=== PATIENT | male | born 1955 | race Caucasian/White ===

== ENCOUNTER 2016-10-24 11:14 | Emergency (ER) | payer BC ==
[~2016-10-24] VITALS: Ht 177.8 cm; Wt 98.2 kg
[~2016-10-24 11:14] MED LIST: LEVOFLOXACIN750 MG PO; PREDNISONE20 MG PO; TRAMADOL HCL50 MG PO; VENTOLIN HFA18 GM IH; ZITHROMAX Z-PA250 MG PO
[2016-10-24 11:52] LABS: HEMATOCRIT 46.7 % (38.0-50.0); MCH 30.5 PG (29.0-34.0); MCHC 33.2 G/DL (30.0-36.0); MCV 91.9 FL (86-99); MEAN PLAT.VOLUME 9.3 uM^3 (9.0-12.4); PLATELET COUNT 145 K/uL (156-360); RBC DIS.WIDTH-CV 13.3 % (11.8-14.6); RBC DIS.WIDTH-SD 45.8 % (39-53); RED BLOOD COUNT 5.08 M/uL (4.00-5.50)
[2016-10-24 12:01] LABS: CHLORIDE 103 mEq/L (99-109); POTASSIUM 4.5 mEq/L (3.7-5.4); SODIUM 139 mEq/L (136-147)
[2016-10-24 12:03] LABS: GLUCOSE 92 mg/dL (70-99)
[2016-10-24 12:04] LABS: ANION GAP 11 MEQ/L (2-14)
[2016-10-24 12:05] LABS: TOTAL BILIRUBIN 0.9 mg/dL (0.0-1.0)
[2016-10-24 12:07] LABS: ALKALINE PHOSPHATASE 87 IU/L (3-129); GFR ESTIMATE (CALCULATED) > 59 mL/min/
[2016-10-24 12:08] LABS: UREA NITROGEN (BUN) 14 mg/dL (9-23)
[2016-10-24] MEDS ORDERED: IBUPROFEN800 MG PO (16:06)
[2016-10-24] MEDS ORDERED: ZOFRAN ODT4 MG PO (16:06)
[2016-10-24 16:39] VITALS: BP 118/92
== END 2016-10-24 16:40 | disposition home or self-care (01) ==
LOC: EME 11:14
DX: K52.9 Noninfective gastroenteritis and colitis, unspecified (principal); E86.0 Dehydration; R51 Headache
CPT/HCPCS: 80053; 81003; 85027; 99281; 99284; J1200; J1885; J2765; J7030

== ENCOUNTER 2016-10-27 11:35 | Emergency (ER) | payer BC ==
[~2016-10-27] VITALS: Ht 177.8 cm; Wt 97.9 kg
[~2016-10-27 11:35] MED LIST changes: +IBUPROFEN800 MG PO; +ZOFRAN ODT4 MG PO
[2016-10-27 13:15] LABS: HEMATOCRIT 46.6 % (38.0-50.0); MCH 30.4 PG (29.0-34.0); MCV 91.9 FL (86-99); RBC DIS.WIDTH-CV 13.2 % (11.8-14.6); RBC DIS.WIDTH-SD 45.1 % (39-53); RED BLOOD COUNT 5.07 M/uL (4.00-5.50)
[2016-10-27 13:22] LABS: CHLORIDE 105 mEq/L (99-109); POTASSIUM 4.4 mEq/L (3.7-5.4); SODIUM 138 mEq/L (136-147)
[2016-10-27 13:25] LABS: GLUCOSE 103 mg/dL (70-99)
[2016-10-27 13:26] LABS: ANION GAP 9 MEQ/L (2-14)
[2016-10-27 13:28] LABS: ALKALINE PHOSPHATASE 80 IU/L (3-129); GFR ESTIMATE (CALCULATED) 47 mL/min/
[2016-10-27 13:29] LABS: UREA NITROGEN (BUN) 15 mg/dL (9-23)
[2016-10-27 13:32] LABS: TOTAL BILIRUBIN 0.5 mg/dL (0.0-1.0)
[2016-10-27 13:38] LABS: ADD MIUA? YES; BILIRUBIN NEGATIVE; BLOOD SMALL; COLOR YELLOW ((YELLOW)); GLUCOSE (STRIP) NEGATIVE; KETONES NEGATIVE; LEUKOCYTES NEGATIVE; NITRITE NEGATIVE; PROTEIN (STRIP) 30; SPECIFIC GRAVITY 1.016 (1.000-1.030); UROBILINOGEN 0.2 MG/DL (0.2-1.0)
[2016-10-27 14:04] LABS: MEAN PLAT.VOLUME 9.8 uM^3 (9.0-12.4); PLAT.SUFFICIENCY DECREASED
[2016-10-27 14:13] LABS: BACTERIA NONE SEEN /HPF; EPITHELIAL CELLS RARE /HPF; MUCUS TRACE /LPF; RED BLOOD CELLS 0-5 /HPF (0-5); UCUL ADDED? NO; WHITE BLOOD CELLS 0-5 /HPF (0-5)
[2016-10-27 14:14] LABS: PLATELET COUNT 75 K/uL (156-360)
[2016-10-27 17:24] LABS: INFLUENZA A VIRAL ANTIGEN NEGATIVE; INFLUENZA B VIRAL ANTIGEN NEGATIVE
[2016-10-27 19:08] LABS: INTERNAL CONTROL VALID? YES; MONOSPOT (MONONUCLEOSIS SEROL) NEGATIVE
[2016-10-27 19:13] VITALS: BP 122/75
== END 2016-10-27 19:14 | disposition home or self-care (01) ==
LOC: EME 11:35
PROVIDERS: Physician Assistant
DX: B34.9 Viral infection, unspecified (principal); D69.6 Thrombocytopenia, unspecified; D72.819 Decreased white blood cell count, unspecified; R42 Dizziness and giddiness; R09.02 Hypoxemia; M79.1 Myalgia; F32.9 Major depressive disorder, single episode, unspecified; F41.9 Anxiety disorder, unspecified
CPT/HCPCS: 70450; 71020; 74177; 80053; 81003; 83605; 85027; 86308; 87040; 87502; 93005; 99281; 99285; J2405